=== PATIENT | male | born 1985 | race Two or more races ===

== ENCOUNTER 2019-04-30 11:26 | Emergency (ER) | payer MEDICAID ==
[~2019-04-30] VITALS: Ht 180.3 cm; Wt 87.6 kg
[2019-04-30 11:48] VITALS: BP 139/80
== END 2019-04-30 12:21 | disposition home or self-care (01) ==
LOC: ER 11:26
DX: K64.4 Residual hemorrhoidal skin tags (principal)

== ENCOUNTER 2021-02-08 20:53 | Emergency (ER) | payer MEDICAID ==
[~2021-02-08] VITALS: Ht 170.2 cm; Wt 93.0 kg
--- NOTE | 2021-02-08 21:31 | NUR ---
PT AAOX4. AMBULATORY, BIB FRIEND C/O R HIP AND R GROIN PAIN. PLACED IN BED 9 ON MONITOR AND PULSE OX. AWAITING ER MD FOR EVAL AND ORDERS.
--- NOTE | 2021-02-08 21:53 | NUR ---
URINE COLLECTED, SENT TO LAB.
[2021-02-08 22:00] LABS: BILIRUBIN,URINE Negative (NEGATIVE); COLOR,URINE YELLOW (YELLOW); LEUKOCYTE ESTERASE ,URINE Negative (NEGATIVE); NITRITE, URINE Negative (NEGATIVE); PROTEIN,URINE Negative (NEGATIVE); UGLUCOSE Negative (NEGATIVE); UROBILINOGEN,URINE 0.2 EU/dL (0.2)
[2021-02-08 22:04] LABS: BACTERIA,URINE Rare /HPF (None Seen); SQUAMOUS EPITHELIAL CELL,UR Few /HPF (None Seen); WBC,URINE NONE SEEN /HPF (0-3)
[2021-02-08] MEDS ORDERED: TRAM50TA2 PO (23:51)
[2021-02-08] MEDS ORDERED: IBUP-1955 PO (23:51)
[2021-02-08 23:57] VITALS: BP 129/83
--- NOTE | 2021-02-08 23:57 | NUR ---
Patient discharged to home in stable condition. Written and verbal after care instructions given. Patient verbalizes understanding of instruction and RX. Pt ambulated out of ED. VSS.
== END 2021-02-08 23:58 | disposition home or self-care (01) ==
LOC: ER 21:03
DX: R22.41 Localized swelling, mass and lump, right lower limb (principal); M79.651 Pain in right thigh; F17.200 Nicotine dependence, unspecified, uncomplicated; Z79.899 Other long term (current) drug therapy
CPT/HCPCS: 73552; 76882; 81001